=== PATIENT | female | born 1965 | race Caucasian/White ===

== ENCOUNTER 2020-11-15 15:03 | Emergency (ER) | payer OTHER | END 2020-11-15 20:16 | disposition left against medical advice (07) | LOC: ER1 15:03 | DX: Z53.21 Procedure and treatment not carried out due to patient leaving prior to being seen by health care provider (principal) | CPT/HCPCS: 70450 ==

== ENCOUNTER → 2020-12-03 | Outpatient (CLI) | payer OTHER | LOC: EMI 13:00 | DX: S04.51XA Injury of facial nerve, right side, initial encounter (principal); G31.9 Degenerative disease of nervous system, unspecified | CPT/HCPCS: 70551 ==